=== PATIENT | female | born 1995 | race Caucasian/White ===

== ENCOUNTER → 2017-11-12 | Outpatient (CLI) | payer OTHER ==
--- NOTE | 2017-11-12 11:51 | US ---
EXAM DESCRIPTION: Pelvis Transvaginal: Ultrasound. CLINICAL HISTORY: EXCESSIVE FREQUENT MENSTRUATION WITH IRREGULAR CYCLE COMPARISON: None. TECHNIQUE: Transcutaneous scanning through the urine filled bladder. Endovaginal scanning. Two-dimensional and Doppler modes. FINDINGS: Uterus 7.2 x 4.2 x 3.9 cm. Endometrial thickness 8.4 mm. Small anechoic gestational sac with echogenic margins. 6.0 x 4.5 x 3.5 mm or mean sac size 4.6 mm. EGA 5 weeks, 0 days. No pole visualized or heart rate detected. The myometrium appears heterogeneous. The uterus is possibly retroverted. Cervix unremarkable. Cul-de-sac contains no fluid. Right ovary 2.4 x 1.7 x 0.9 cm. Normal color Vascularity Doppler. Multiple follicles but no cysts. No adnexal mass or free fluid. Left ovary 3.4 x 3.3 x 1.9 cm. Normal color Vascularity Doppler. Multiple follicles with no cysts. No adnexal mass or free fluid. IMPRESSION: 1. Small anechoic sac with echogenic margins in the endometrial cavity suggestive of early gestational sac. No pole seen and no heart rate detected. Mean gestational sac size consistent with EGA 5 weeks, 0 days. Uterus possibly retroverted. Recommend follow-up ultrasound in 7-10 days with serial beta hCG measurements. 2. Bilateral ovaries normal size with small follicles. No dominant cyst or adnexal mass. No free fluid. Electronically signed by: Tate Toro MD 11/12/2017 11:50 AM RESEARCH PHLEBOT[employer]IST
== END ==
LOC: US 09:29
PROVIDERS: ATTEND Physician Assistant
DX: N92.1 Excessive and frequent menstruation with irregular cycle (principal)

== ENCOUNTER → 2018-02-28 | Outpatient (CLI) | payer OTHER | LOC: GMATM 14:12 | PROVIDERS: ATTEND Nurse Practitioner Family | DX: N39.0 Urinary tract infection, site not specified (principal) ==

== ENCOUNTER 2019-10-04 10:13 | Emergency (ER) | payer OTHER ==
[2019-10-04] MEDS ORDERED: ONDANSETRON ODT 8 MG TAB SL ONE (10:49)
[2019-10-04] MEDS ORDERED: SODIUM CHLORIDE 0.9% 1000ML 1,000 ML IVS ONE ×2 (10:49→11:54)
--- NOTE | 2019-10-04 11:21 | RAD ---
EXAM DESCRIPTION: Abdomen Series CLINICAL HISTORY: nv abd pain COMPARISON: 06/27/2016.. TECHNIQUE: Upright PA chest with supine and upright views of the abdomen FINDINGS: The lungs are clear without focal consolidation, pleural effusion, or significant pneumothorax. The heart is normal in size. Minimal amount of stool within the cecum. The bowel gas pattern is normal without evidence of obstruction. No free subdiaphragmatic air. No abnormal calcifications. No acute osseous abnormality. IMPRESSION: 1. No acute cardiopulmonary process. 2. Nonobstructive bowel gas pattern. Electronically signed by: Néstor Morelos DO 10/04/2019 11:19 AM [facility]
--- NOTE | 2019-10-04 12:54 | ED.PDOC ---
History of Present Illness - General Chief Complaint: Abdominal Pain Stated Complaint: nausea/vomiting Time Seen by Provider: 10/04/19 10:48 Source: patient Exam Limitations: no limitations - History of Present Illness Initial Comments: The patient is a 23-year-old female presenting to emergency room secondary to nausea and vomiting that started in the early hours of morning.no diarrhea. No chest pain. She does have abdominal cramping but no real point abdominal pain. Apparently she had some heavier drinking yesterday. No fevers. No sore throat or runny nose. Timing/Duration: 4-6 hours Severity: severe Improving Factors: nothing Worsening Factors: nothing Associated Symptoms: loss of appetite, malaise, nausea/vomiting, weakness Allergies/Adverse Reactions: Allergies NO KNOWN ALLERGY Allergy (Verified 07/26/13 15:39) per physicians order sheet Home Medications: Ambulatory Orders Norgestimate-Ethinyl Estradiol [Norgestimate/Eth... 0.18/0.215/0.25 mg-25 Mcg] 1 tablet PO DAILY 10/04/19 Ondansetron Odt [Zofran ODT] 4 mg PO Q8HR PRN #5 tab 10/04/19 Review of Systems - Review of Systems Constitutional: States: malaise, weakness EENTM: States: no symptoms reported Respiratory: States: no symptoms reported Cardiology: States: no symptoms reported Gastrointestinal/Abdominal: States: abdominal pain, nausea, vomiting Genitourinary: States: no symptoms reported Musculoskeletal: States: no symptoms reported Skin: States: no symptoms reported Neurological: States: headache Endocrine: States: no symptoms reported All other Systems: No Change from Baseline Past Medical History (General) - Patient Medical History Hx Seizures: No Hx Stroke: No Hx Asthma: No Hx of COPD: No Hx Cardiac Disorders: No Hx Congestive Heart Failure: No Hx Pacemaker: No Hx Hypertension: No Hx Diabetes: No Hx Gastroesophageal Reflux: No Hx MRSA: No Surgical History: other - Social History Hx Alcohol Use: No Hx Substance Use: No Hx Physical Abuse: No Hx Emotional Abuse: No - Female History Hx Last Menstrual Period: 07/07/13 Family Medical History - Family History Grandparents Living Status: Unknown Hx Family Diabetes: Yes Physical Exam - Physical Exam General Appearance: Alert, Obvious distress Eye Exam: bilateral normal Ears, Nose, Throat: hearing grossly normal, normal ENT inspection Neck: full range of motion, supple Respiratory: lungs clear, normal breath sounds, no respiratory distress, no accessory muscle use Cardiovascular/Chest: normal peripheral pulses, regular rate, rhythm, no edema Peripheral Pulses: radial,right: 2+, radial,left: 2+ Gastrointestinal/Abdominal: soft, other - diffuse discomfort to palpation. No palpable mass. No obvious rebound. Rectal Exam: deferred Back Exam: no CVA tenderness, no vertebral tenderness Extremity: non-tender, normal inspection, no pedal edema, normal capillary refill Neurologic: video photographer II-XII nml as tested, alert, normal mood/affect, oriented x 3 Skin Exam: pallor Comments: Vital Signs - 24 hr 10/04/19 10/04/19 10/04/19 10:30 11:14 11:27 Temperature 96.9 F L Pulse Rate [ 106 H 88 96 H Pulse Ox] Respiratory 16 16 18 Rate Blood Pressure 110/79 110/79 [R Arm] O2 Sat by Pulse 99 95 Oximetry Progress - Progress Progress: 10/04/19 12:55 the patient is a 23-year-old female presenting to the emergency room with nausea and vomiting. This is likely contributed to by alcohol use last night but she may also have a gastroenteritis present. She needs to keep herself well hydrated and maintain a bland diet. She received a dose of Zofran here and will be continued on that as an outpatient as needed. She received 2 L of IV fluids here. Laboratory work is rather reassuring. X-rays also reassuring. She needs to avoid alcohol for the next couple of weeks. 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 Keep routine follow-up with primary care doctor. ER warnings are given. maria teresa mena [phone] - Results/Orders Results/Orders: acute abdominal series essentially appears benign. See report for details. Laboratory Tests 10/04/19 10/04/19 10/04/19 10:00 11:00 11:20 WBC RBC Hgb Hct MCV MCH MCHC RDW Plt Count MPV Absolute Neuts (auto) Absolute Lymphs (auto) Absolute Monos (auto) Absolute Eos (auto) Absolute Basos (auto) Neutrophils % Lymphocytes % Monocytes % Eosinophils % Basophils % Sodium 139 Potassium 4.4 Chloride 106 Carbon Dioxide 19 L Anion Gap 18.4 H BUN 15 Creatinine 0.65 BUN/Creatinine Ratio 23.1 H Random Glucose 77 Serum Osmolality 277.2 Lactic Acid Calcium 9.6 Total Bilirubin 1.1 H AST 26 ALT 15 Alkaline Phosphatase 58 Serum Total Protein 8.1 Albumin 4.5 Globulin 3.6 H Albumin/Globulin Ratio 1.3 Amylase 64 Urine Color Yellow Urine Appearance Clear Urine pH 5.5 Ur Specific [place] >= 1.030 Urine Protein Negative Urine Glucose (UA) Negative Urine Ketones >=160 Urine Blood Moderate H Urine Nitrite Negative Urine Bilirubin Negative Urine Urobilinogen 0.2 Ur Leukocyte Esterase Negative Urine RBC 5-10 H Urine WBC 5-10 H Ur Epithelial Cells Tntc Amorphous Sediment 3+ Urine Bacteria 1+ Urine Mucus Trace Urine HCG, Qual Negative 10/04/19 10/04/19 11:20 11:30 WBC 10.0 RBC 4.69 Hgb 14.9 Hct 43.6 MCV 93.0 MCH 31.7 H MCHC 34.1 RDW 11.8 Plt Count 304 MPV 8.1 Absolute Neuts (auto) 8.60 H Absolute Lymphs (auto) 0.90 L Absolute Monos (auto) 0.40 Absolute Eos (auto) 0.00 Absolute Basos (auto) 0.10 Neutrophils % 86.0 H Lymphocytes % 9.1 L Monocytes % 4.1 Eosinophils % 0.1 L Basophils % 0.7 Sodium Potassium Chloride Carbon Dioxide Anion Gap BUN Creatinine BUN/Creatinine Ratio Random Glucose Serum Osmolality Lactic Acid 1.5 Calcium Total Bilirubin AST ALT Alkaline Phosphatase Serum Total Protein Albumin Globulin Albumin/Globulin Ratio Amylase Urine Color Urine Appearance Urine pH Ur Specific [place] Urine Protein Urine Glucose (UA) Urine Ketones Urine Blood Urine Nitrite Urine Bilirubin Urine Urobilinogen Ur Leukocyte Esterase Urine RBC Urine WBC Ur Epithelial Cells Amorphous Sediment Urine Bacteria Urine Mucus Urine HCG, Qual Departure - Departure Clinical Impression: Gastroenteritis Disposition: Discharge to Home or Self Care Condition: Good Departure Forms: ED Discharge - Pt. Copy, Patient Portal Self Enrollment Diet: bland diet Activity: increase activity as tolerated Referrals: Sherif Mena MD [Primary Care Provider] - 1-2 Weeks Prescriptions: Ondansetron Odt [Zofran ODT] 4 mg PO Q8HR PRN #5 tab PRN Reason: Nausea--Moderate Home Medications: Ambulatory Orders Norgestimate-Ethinyl Estradiol [Norgestimate/Eth... 0.18/0.215/0.25 mg-25 Mcg] 1 tablet PO DAILY 10/04/19 Ondansetron Odt [Zofran ODT] 4 mg PO Q8HR PRN #5 tab 10/04/19 Additional Instructions: the patient is a 23-year-old female presenting to the emergency room with nausea and vomiting. This is likely contributed to by alcohol use last night but she may also have a gastroenteritis present. She needs to keep herself well hydrated and maintain a bland diet. She received a dose of Zofran here and will be continued on that as an outpatient as needed. She received 2 L of IV fluids here. Laboratory work is rather reassuring. X-rays also reassuring. She needs to avoid alcohol for the next couple of weeks. 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 Keep routine follow-up with primary care doctor. ER warnings are given.
[2019-10-04 13:28] VITALS: BP 123/76; O2SAT 97
[2019-10-04 14:09] VITALS: TEMP 97.6
== END 2019-10-04 13:10 | disposition home or self-care (01) ==
LOC: ER 10:13
DX: K52.9 Noninfective gastroenteritis and colitis, unspecified (principal)
CPT/HCPCS: 36415; 36416; 74019; 80053; 81001; 81025; 82150; 83605; 83690; 85025; 87502; J7030

== ENCOUNTER → 2019-11-23 | Outpatient (CLI) | payer OTHER | LOC: GMAM 17:23 | PROVIDERS: ATTEND Family Medicine | DX: R07.89 Other chest pain (principal); E53.8 Deficiency of other specified B group vitamins; E55.9 Vitamin D deficiency, unspecified ==

== ENCOUNTER 2020-02-07 23:25 | Emergency (ER) | payer OTHER ==
[2020-02-07] MEDS ORDERED: METOCLOPRAMIDE HCL INJ 10 MG/2 ML VIAL IV ONE (23:39)
[2020-02-07] MEDS ORDERED: ACETAMINOPHEN 500 MG TAB PO ONE (23:39)
[2020-02-07] MEDS ORDERED: SODIUM CHLORIDE 0.9% 1000ML 1,000 ML IVS ONE (23:39)
[2020-02-07] MEDS ORDERED: DEXAMETHASONE INJ 10 MG/ML VIAL IV ONE (23:40)
[2020-02-07] MEDS ORDERED: diphenhydrAMINE HCL 50 MG/ML VIAL IV ONE (23:45)
[2020-02-08] MEDS ORDERED: PROMETHAZINE HCL INJ 25 MG/ML VIAL IM ONE (00:03)
--- NOTE | 2020-02-08 00:07 | ED.PDOC ---
History of Present Illness - General Chief Complaint: Headache Stated Complaint: headache, migraines Time Seen by Provider: 02/07/20 23:32 - History of Present Illness Initial Comments: 24 yo F PMH Anxiety Depression (Denies hallucinations SI HI without suicide plan) Migraines Headaches presents to ED boyfriend at bedside c/o headache nausea vomiting without blood photophobia phonophobia x 3 hours. Denies recent travel cough or contact with covid19 denies fever chills diarrhea chest pain sob diaphoresis. Symptoms disturb rest and appetite no change in bowel or bladder no other c/o today PMD Irene Contreras Allergies/Adverse Reactions: Allergies NO KNOWN ALLERGY Allergy (Verified 02/07/20 23:36) per physicians order sheet Home Medications: Ambulatory Orders Ergocalciferol [Vitamin D] 1 capsule PO WKLY 02/07/20 Norgestimate-Ethinyl Estradiol [Femynor 0.25-35 mg-Mcg] 1 tablet PO DAILY 02/07/20 PARoxetine HCL [Paxil] 20 mg PO DAILY 02/07/20 Acetaminophen [Tylenol] 650 mg PO Q6H PRN #30 tab 02/08/20 DiphenhydrAMINE HCL [Benadryl] 50 mg PO BEDTIME #5 cap 02/08/20 Ibuprofen 600 mg PO Q6H PRN #20 tab 02/08/20 Review of Systems - Review of Systems Constitutional: States: see HPI EENTM: States: see HPI Respiratory: States: see HPI Cardiology: States: see HPI Gastrointestinal/Abdominal: States: see HPI Genitourinary: States: see HPI Musculoskeletal: States: see HPI Skin: States: see HPI Neurological: States: see HPI Endocrine: States: see HPI Hematologic/Lymphatic: States: see HPI All other Systems: Reviewed and Negative Past Medical History (General) - Patient Medical History Hx Seizures: No Hx Stroke: No Hx Dementia: No Hx Asthma: No Hx of COPD: No Hx Cardiac Disorders: No Hx Congestive Heart Failure: No Hx Pacemaker: No Hx Hypertension: No Hx Thyroid Disease: No Hx Diabetes: No Hx Gastroesophageal Reflux: No Hx Renal Disease: No Hx Cancer: No Hx of HIV: No Hx Hepatitis C: No Hx MRSA: No Surgical History: no surgical history - Social History Hx Alcohol Use: Yes Hx Substance Use: No Hx Physical Abuse: No Hx Emotional Abuse: No - Female History Hx Last Menstrual Period: 07/07/13 Family Medical History - Family History Grandparents Living Status: Unknown Hx Family Diabetes: Yes Physical Exam - Physical Exam General Appearance: Anxious, Obvious distress Eyes, Ears, Nose, Throat Exam: normal ENT inspection Neck: non-tender, full range of motion Cardiovascular/Chest: regular rate, rhythm, tachycardia Respiratory: no respiratory distress Gastrointestinal/Abdominal: non tender, soft Back Exam: normal inspection Extremity: normal range of motion, non-tender Mental Status: alert, oriented x 3 substitute bus driver Exam: normal speech Coordination/Gait: normal gait Motor/Sensory: no motor deficit, no sensory deficit Skin Exam: warm/dry Progress - Progress Progress: 02/08/20 00:05 PPE worn-N95 surgical mask with attached face shield over N95 gloves goggles and face shield over that A/P-Generalized Headache-iv bolus reglan benadryl phenergan tylenol decadron cbc cmp lipase utox asa acetaminophen alcohol level ua uhcg ct head reassess 02/08/20 00:20 sister and mother now at bedside as coincidentally sister presented to ED as a patient 02/08/20 00:45 On reassessment pt much more comfortable and sleeping soundly on monitor not hypoxic or tachycardic Laboratory Tests 02/07/20 02/07/20 02/07/20 23:45 23:45 23:45 WBC RBC Hgb Hct MCV MCH MCHC RDW Plt Count MPV Absolute Neuts (auto) Absolute Lymphs (auto) Absolute Monos (auto) Absolute Eos (auto) Absolute Basos (auto) Neutrophils % Lymphocytes % Monocytes % Eosinophils % Basophils % Sodium Potassium Chloride Carbon Dioxide Anion Gap BUN Creatinine BUN/Creatinine Ratio Random Glucose Serum Osmolality Calcium Total Bilirubin AST ALT Alkaline Phosphatase Serum Total Protein Albumin Globulin Albumin/Globulin Ratio Lipase Urine Color Yellow Urine Appearance Sl cloudy Urine pH 5.5 Ur Specific [place] 1.025 Urine Protein Negative Urine Glucose (UA) Negative Urine Ketones Negative Urine Blood Negative Urine Nitrite Negative Urine Bilirubin Negative Urine Urobilinogen 0.2 Ur Leukocyte Esterase Negative Urine RBC 0 Urine WBC 1-3 Ur Epithelial Cells 3-5 Urine Bacteria Rare Urine HCG, Qual Negative Salicylates Urine Opiates Screen Negative Acetaminophen Urine Barbiturates Negative Ur Phencyclidine Scrn Negative U Amphetamin/Meth Scrn Negative U Benzodiazepines Scrn Negative U Cocaine Metab Screen Negative U Cannabinoids Screen Positive H Ethyl Alcohol 02/08/20 02/08/20 02/08/20 00:01 00:01 00:01 WBC 12.0 H RBC 4.66 Hgb 15.0 Hct 43.6 MCV 93.4 MCH 32.1 H MCHC 34.4 RDW 11.9 Plt Count 246 MPV 8.4 Absolute Neuts (auto) 7.30 H Absolute Lymphs (auto) 3.50 H Absolute Monos (auto) 0.80 Absolute Eos (auto) 0.30 Absolute Basos (auto) 0.10 Neutrophils % 60.7 Lymphocytes % 29.4 Monocytes % 6.8 Eosinophils % 2.4 Basophils % 0.7 Sodium 133 L Potassium 3.0 L Chloride 99 L Carbon Dioxide 22 Anion Gap 15.0 BUN 15 Creatinine 0.72 BUN/Creatinine Ratio 20.8 H Random Glucose 109 H Serum Osmolality 267.8 L Calcium 9.2 Total Bilirubin 0.7 AST 19 ALT 13 Alkaline Phosphatase 54 Serum Total Protein 7.5 Albumin 4.6 Globulin 2.9 Albumin/Globulin Ratio 1.6 Lipase 37 Urine Color Urine Appearance Urine pH Ur Specific [place] Urine Protein Urine Glucose (UA) Urine Ketones Urine Blood Urine Nitrite Urine Bilirubin Urine Urobilinogen Ur Leukocyte Esterase Urine RBC Urine WBC Ur Epithelial Cells Urine Bacteria Urine HCG, Qual Salicylates Urine Opiates Screen Acetaminophen < 10.0 L Urine Barbiturates Ur Phencyclidine Scrn U Amphetamin/Meth Scrn U Benzodiazepines Scrn U Cocaine Metab Screen U Cannabinoids Screen Ethyl Alcohol < 5.40 02/08/20 00:48 EXAM DESCRIPTION: Head CLINICAL HISTORY: 24 years Female headache COMPARISON: None Technique: Contiguous axial images of the brain were obtained without the administration of intravenous contrast.This exam was performed according to our departmental dose-optimization program which includes use of Automated Exposure Control, adjustment of the mA and/or kV according to patient size and/or use of iterative reconstruction technique. DLP: 859 mGy*cm FINDINGS: Brain: No acute intracranial hemorrhage. No extra-axial collection. No mass effect or herniation. Ventricles: Within normal limits in size. Globes and orbits: No acute abnormality. Bones: No acute osseous finding Paranasal sinuses: Paranasal sinuses are clear. Mastoid air cells: Well pneumatized. Soft tissues: Within normal limits IMPRESSION: No acute intracranial abnormality. If clinical concern for acute ischemia, consider MRI brain without contrast for further evaluation. Electronically signed by: Alan Cohendebra CARTER 02/08/2020 12:42 AM CDT EXAM DESCRIPTION: Chest,1 View CLINICAL HISTORY:24 years Female, vomit Comparison: None FINDINGS: No focal lung consolidation. Mild left lung base atelectasis. No pleural effusion. No pneumothorax. Cardiomediastinal silhouette is within normal limits. No acute osseous abnormality. IMPRESSION: No acute cardiopulmonary disease. Electronically signed by: Alan Kardebra CARTER 02/08/2020 12:41 AM CDT Discharge home with Mother and sister tylenol ibuprofen benadryl Departure - Departure Clinical Impression: Marijuana abuse Headache Qualifiers: Headache type: unspecified Headache chronicity pattern: unspecified pattern Intractability: not intractable Qualified Code(s): R51 - Headache Disposition: Discharge to Home or Self Care Condition: Fair Departure Forms: ED Discharge - Pt. Copy, Patient Portal Self Enrollment Instructions: DI for Headache Referrals: Sherif Conrteras MD [Primary Care Provider] - 1-2 Days Prescriptions: Acetaminophen [Tylenol] 650 mg PO Q6H PRN #30 tab PRN Reason: Pain DiphenhydrAMINE HCL [Benadryl] 50 mg PO BEDTIME #5 cap Ibuprofen 600 mg PO Q6H PRN #20 tab PRN Reason: Pain Home Medications: Ambulatory Orders Ergocalciferol [Vitamin D] 1 capsule PO WKLY 02/07/20 Norgestimate-Ethinyl Estradiol [Femynor 0.25-35 mg-Mcg] 1 tablet PO DAILY 02/07/20 PARoxetine HCL [Paxil] 20 mg PO DAILY 02/07/20 Acetaminophen [Tylenol] 650 mg PO Q6H PRN #30 tab 02/08/20 DiphenhydrAMINE HCL [Benadryl] 50 mg PO BEDTIME #5 cap 02/08/20 Ibuprofen 600 mg PO Q6H PRN #20 tab 02/08/20
[2020-02-08] MEDS ORDERED: SODIUM CHLORIDE 0.9% 1000ML 1,000 ML IVS ONE (00:27)
--- NOTE | 2020-02-08 00:42 | RAD ---
EXAM DESCRIPTION: Chest,1 View CLINICAL HISTORY:24 years Female, vomit Comparison: None FINDINGS: No focal lung consolidation. Mild left lung base atelectasis. No pleural effusion. No pneumothorax. Cardiomediastinal silhouette is within normal limits. No acute osseous abnormality. IMPRESSION: No acute cardiopulmonary disease. Electronically signed by: Alan Durbin DO 02/08/2020 12:41 AM CDT
--- NOTE | 2020-02-08 00:43 | CT ---
EXAM DESCRIPTION: Head CLINICAL HISTORY: 24 years Female headache COMPARISON: None Technique: Contiguous axial images of the brain were obtained without the administration of intravenous contrast.This exam was performed according to our departmental dose-optimization program which includes use of Automated Exposure Control, adjustment of the mA and/or kV according to patient size and/or use of iterative reconstruction technique. DLP: 859 mGy*cm FINDINGS: Brain: No acute intracranial hemorrhage. No extra-axial collection. No mass effect or herniation. Ventricles: Within normal limits in size. Globes and orbits: No acute abnormality. Bones: No acute osseous finding Paranasal sinuses: Paranasal sinuses are clear. Mastoid air cells: Well pneumatized. Soft tissues: Within normal limits IMPRESSION: No acute intracranial abnormality. If clinical concern for acute ischemia, consider MRI brain without contrast for further evaluation. Electronically signed by: Alan Durbin DO 02/08/2020 12:42 AM CDT
[2020-02-08 01:03] VITALS: O2SAT 97
[2020-02-08 01:52] VITALS: BP 112/76; TEMP 97.8
== END 2020-02-08 01:53 | disposition home or self-care (01) ==
LOC: ER 23:25
DX: F12.10 Cannabis abuse, uncomplicated (principal); R51 Headache; R11.2 Nausea with vomiting, unspecified
CPT/HCPCS: 70450; 71045; 80053; 80307; 80320; 80329; 81001; 81025; 83690; 85025; J1100; J1200; J2550; J2765; J7030

== ENCOUNTER 2020-04-09 21:16 | Emergency (ER) | payer OTHER ==
[2020-04-09] MEDS ORDERED: SUCRALFATE 1 GM/10 ML 1 GM UD PO ONE (21:34)
[2020-04-09] MEDS ORDERED: SODIUM CHLORIDE 0.9% 1000ML 1,000 ML IVS ONE (21:34)
[2020-04-09] MEDS ORDERED: PANTOPRAZOLE SODIUM IV 40 MG VIAL IV ONE (21:34)
[2020-04-09] MEDS ORDERED: FOLIC ACID INJ 5 MG/ML VIAL IV ONE (21:34)
[2020-04-09] MEDS ORDERED: ONDANSETRON ODT 8 MG TAB SL ONE (21:35)
[2020-04-09 21:36] VITALS: O2SAT 98
[2020-04-09] MEDS ORDERED: THIAMINE HCL INJ 100 MG/ML VIAL ONE (21:47)
--- NOTE | 2020-04-09 22:22 | ED.PDOC ---
History of Present Illness - General Chief Complaint: GI Problem Stated Complaint: drank too much alcohol feels dehydrated Time Seen by Provider: 04/09/20 21:17 Source: patient Exam Limitations: no limitations - History of Present Illness Initial Comments: The patient is a 24-year-old female presented emergency room secondary to nausea and vomiting that is persistent persisting today. The patient reports she believes is due to drinking fairly heavily the night before. She has had this issue at least once before. She is feeling dehydrated and having some muscle cramps. No point tenderness on her abdomen though the epigastric area is a little more uncomfortable than elsewhere. No diarrhea. No fever. No right upper quadrant pain. No right lower quadrant pain particularly. Timing/Duration: other - 12 hours Severity: moderate Improving Factors: nothing Worsening Factors: eating Associated Symptoms: loss of appetite, malaise, nausea/vomiting Allergies/Adverse Reactions: Allergies NO KNOWN ALLERGY Allergy (Verified 02/07/20 23:36) per physicians order sheet Home Medications: Ambulatory Orders Ergocalciferol [Vitamin D] 1 capsule PO WKLY 02/07/20 Norgestimate-Ethinyl Estradiol [Femynor 0.25-35 mg-Mcg] 1 tablet PO DAILY 02/07/20 PARoxetine HCL [Paxil] 20 mg PO DAILY 02/07/20 Acetaminophen [Tylenol] 650 mg PO Q6H PRN #30 tab 02/08/20 DiphenhydrAMINE HCL [Benadryl] 50 mg PO BEDTIME #5 cap 02/08/20 Ibuprofen 600 mg PO Q6H PRN #20 tab 02/08/20 Ondansetron Odt [Zofran ODT] 4 mg PO Q8HR PRN #5 tab 04/09/20 Sucralfate Tab [Carafate Tab] 1 gm PO QID #30 tab 04/09/20 Review of Systems - Review of Systems Constitutional: States: malaise EENTM: States: no symptoms reported Respiratory: States: no symptoms reported Cardiology: States: no symptoms reported Gastrointestinal/Abdominal: States: nausea, vomiting Genitourinary: States: no symptoms reported Musculoskeletal: States: back pain Skin: States: no symptoms reported Neurological: States: no symptoms reported Endocrine: States: no symptoms reported All other Systems: No Change from Baseline Past Medical History (General) - Patient Medical History Hx Seizures: No Hx Stroke: No Hx Dementia: No Hx Asthma: No Hx of COPD: No Hx Cardiac Disorders: No Hx Congestive Heart Failure: No Hx Pacemaker: No Hx Hypertension: No Hx Thyroid Disease: No Hx Diabetes: No Hx Gastroesophageal Reflux: No Hx Renal Disease: No Hx Cancer: No Hx of HIV: No Hx Hepatitis C: No Hx MRSA: No Surgical History: other - Vaccination History Hx Tetanus, Diphtheria Vaccination: Yes Hx Influenza Vaccination: No - Social History Hx Tobacco Use: Yes Hx Alcohol Use: Yes Hx Substance Use: No Hx Physical Abuse: No Hx Emotional Abuse: No - Female History Hx Last Menstrual Period: 07/07/13 Family Medical History - Family History Grandparents Living Status: Unknown Hx Family Diabetes: Yes Physical Exam - Physical Exam General Appearance: Alert, Comfortable, No apparent distress Eye Exam: bilateral normal Ears, Nose, Throat: hearing grossly normal, normal pharynx Neck: full range of motion, supple Respiratory: lungs clear, normal breath sounds, no respiratory distress, no accessory muscle use Cardiovascular/Chest: normal peripheral pulses, regular rate, rhythm - Borderline tachycardia, no edema Peripheral Pulses: radial,right: 2+, radial,left: 2+ Gastrointestinal/Abdominal: non tender, soft Rectal Exam: deferred Back Exam: no CVA tenderness, no vertebral tenderness Extremity: normal range of motion, non-tender, normal inspection, no pedal edema, no calf tenderness, normal capillary refill 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 She does have mild dehydration and has received a liter of IV fluids along with thiamine and folate. The patient will be written for Carafate to take for the next week along with some Zofran for as needed use. She needs to try and avoid alcohol for at least the next week or 2. Keep well-hydrated. Maintain a bland diet. ER warnings are given for any worsening. maria teresa mena [phone] - Results/Orders Results/Orders: Laboratory Results - last hr 04/09/20 04/09/20 04/09/20 21:40 21:43 21:43 WBC 12.4 H RBC 4.60 Hgb 15.1 Hct 43.7 MCV 95.0 MCH 32.9 H MCHC 34.6 RDW 12.2 Plt Count 279 MPV 8.0 Absolute Neuts (auto) 10.60 H Absolute Lymphs (auto) 1.20 Absolute Monos (auto) 0.50 Absolute Eos (auto) 0.00 Absolute Basos (auto) 0.10 Neutrophils % 85.1 H Lymphocytes % 10.0 L Monocytes % 4.4 Eosinophils % 0.0 L Basophils % 0.5 Sodium 137 Potassium 4.4 Chloride 103 Carbon Dioxide 18 L Anion Gap 20.4 H BUN 16 Creatinine 0.75 BUN/Creatinine Ratio 21.3 H Random Glucose 96 Serum Osmolality 274.9 L Calcium 9.6 Magnesium 1.8 Total Bilirubin 1.2 H AST 26 ALT 18 Alkaline Phosphatase 77 Serum Total Protein 8.4 H Albumin 4.7 Globulin 3.7 H Albumin/Globulin Ratio 1.3 Amylase 143 H Lipase 28 Serum HCG, Qual Urine Color Yellow Urine Appearance Clear Urine pH 5.5 Ur Specific [place] >= 1.030 Urine Protein Negative Urine Glucose (UA) Negative Urine Ketones >=160 Urine Blood Trace-lysed H Urine Nitrite Negative Urine Bilirubin Negative Urine Urobilinogen 0.2 Ur Leukocyte Esterase Negative Urine RBC 0-1 Urine WBC 0-1 Ur Epithelial Cells 3-5 Urine Bacteria Rare Urine Mucus Moderate 04/09/20 21:43 WBC RBC Hgb Hct MCV MCH MCHC RDW Plt Count MPV Absolute Neuts (auto) Absolute Lymphs (auto) Absolute Monos (auto) Absolute Eos (auto) Absolute Basos (auto) Neutrophils % Lymphocytes % Monocytes % Eosinophils % Basophils % Sodium Potassium Chloride Carbon Dioxide Anion Gap BUN Creatinine BUN/Creatinine Ratio Random Glucose Serum Osmolality Calcium Magnesium Total Bilirubin AST ALT Alkaline Phosphatase Serum Total Protein Albumin Globulin Albumin/Globulin Ratio Amylase Lipase Serum HCG, Qual Negative Urine Color Urine Appearance Urine pH Ur Specific [place] Urine Protein Urine Glucose (UA) Urine Ketones Urine Blood Urine Nitrite Urine Bilirubin Urine Urobilinogen Ur Leukocyte Esterase Urine RBC Urine WBC Ur Epithelial Cells Urine Bacteria Urine Mucus Departure - Departure Clinical Impression: Acute gastritis Qualifiers: Gastritis type: alcoholic Gastritis bleeding: without bleeding Qualified Code(s): K29.20 - Alcoholic gastritis without bleeding Disposition: Discharge to Home or Self Care Condition: Fair Departure Forms: ED Discharge - Pt. Copy, Patient Portal Self Enrollment Instructions: DI for Gastritis Diet: bland diet Activity: increase activity as tolerated Referrals: Sherif Mena MD [Primary Care Provider] - 1-2 Weeks Prescriptions: Ondansetron Odt [Zofran ODT] 4 mg PO Q8HR PRN #5 tab PRN Reason: Nausea--Moderate Sucralfate Tab [Carafate Tab] 1 gm PO QID #30 tab Home Medications: Ambulatory Orders Ergocalciferol [Vitamin D] 1 capsule PO WKLY 02/07/20 Norgestimate-Ethinyl Estradiol [Femynor 0.25-35 mg-Mcg] 1 tablet PO DAILY 02/07/20 PARoxetine HCL [Paxil] 20 mg PO DAILY 02/07/20 Acetaminophen [Tylenol] 650 mg PO Q6H PRN #30 tab 02/08/20 DiphenhydrAMINE HCL [Benadryl] 50 mg PO BEDTIME #5 cap 02/08/20 Ibuprofen 600 mg PO Q6H PRN #20 tab 02/08/20 Ondansetron Odt [Zofran ODT] 4 mg PO Q8HR PRN #5 tab 04/09/20 Sucralfate Tab [Carafate Tab] 1 gm PO QID #30 tab 04/09/20 Additional Instructions: The patient is a 24-year-old female presenting with gastritis that is likely due to alcohol intake last night. She does have mild dehydration and has received a liter of IV fluids along with thiamine and folate. The patient will be written for Carafate to take for the next week along with some Zofran for as needed use. She needs to try and avoid alcohol for at least the next week or 2. Keep well-hydrated. Maintain a bland diet. Follow-up with primary care doctor later this coming week. ER warnings are given for any worsening.
[2020-04-09 22:40] VITALS: BP 124/78; TEMP 98.1
[2020-04-10] MEDS ORDERED: THIAMINE HCL INJ 100 MG/ML VIAL IV ONE (21:35)
== END 2020-04-09 22:39 | disposition home or self-care (01) ==
LOC: ER 21:16
DX: K29.20 Alcoholic gastritis without bleeding (principal); E86.0 Dehydration; F17.200 Nicotine dependence, unspecified, uncomplicated
CPT/HCPCS: 80053; 81001; 82150; 83690; 83735; 84443; 84703; 85025; J3411; J7030

== ENCOUNTER 2020-07-24 01:13 | Emergency (ER) | payer OTHER ==
--- NOTE | 2020-07-24 01:35 | ED.PDOC ---
History of Present Illness - General Chief Complaint: Respiratory Problem Time Seen by Provider: 07/24/20 01:14 Source: patient, RN notes reviewed, Vital Signs reviewed Exam Limitations: no limitations - History of Present Illness Initial Comments: 24 yo otherwise healthy F was at a friends house when she did some cocaine. Turns out it wasn't cocaine it was meth. She developed chest pain, shortness of breath and heart racing. She tried to drink a beer to see if that would help, but it didn't so came in for evaluation. no evidence of acute intoxication. calm, collective. last used yesterday evening. Timing/Duration: 4-6 hours Allergies/Adverse Reactions: Allergies NO KNOWN ALLERGY Allergy (Verified 02/07/20 23:36) per physicians order sheet Home Medications: Ambulatory Orders Ergocalciferol [Vitamin D] 1 capsule PO WKLY 02/07/20 Norgestimate-Ethinyl Estradiol [Femynor 0.25-35 mg-Mcg] 1 tablet PO DAILY PARoxetine HCL [Paxil] 20 mg PO DAILY 02/07/20 Acetaminophen [Tylenol] 650 mg PO Q6H PRN #30 tab 02/08/20 DiphenhydrAMINE HCL [Benadryl] 50 mg PO BEDTIME #5 cap 02/08/20 Ibuprofen 600 mg PO Q6H PRN #20 tab 02/08/20 Ondansetron Odt [Zofran ODT] 4 mg PO Q8HR PRN #5 tab 04/09/20 Sucralfate Tab [Carafate Tab] 1 gm PO QID #30 tab 04/09/20 Review of Systems - Review of Systems Constitutional: Denies: chills, fever EENTM: Denies: blurred vision, double vision Respiratory: States: short of breath. Denies: cough, wheezing Cardiology: States: chest pain, palpitations. Denies: edema, syncope Gastrointestinal/Abdominal: Denies: abdominal pain, diarrhea, nausea, vomiting Genitourinary: Denies: dysuria, frequency, hematuria Musculoskeletal: Denies: back pain, joint swelling, muscle pain Skin: Denies: rash Neurological: Denies: headache, numbness, paresthesia, tingling, tremors, weakness Endocrine: Denies: unexplained weight gain, unexplained weight loss Hematologic/Lymphatic: Denies: blood clots, easy bleeding, easy bruising Past Medical History (General) - Patient Medical History Hx Seizures: No Hx Stroke: No Hx Dementia: No Hx Asthma: No Hx of COPD: No Hx Cardiac Disorders: No Hx Congestive Heart Failure: No Hx Pacemaker: No Hx Hypertension: No Hx Thyroid Disease: No Hx Diabetes: No Hx Gastroesophageal Reflux: No Hx Renal Disease: No Hx Cancer: No Hx of HIV: No Hx Hepatitis C: No Hx MRSA: No - Vaccination History Hx Tetanus, Diphtheria Vaccination: Yes Hx Influenza Vaccination: No - Social History Hx Tobacco Use: Yes Hx Alcohol Use: Yes Hx Substance Use: No Hx Physical Abuse: No Hx Emotional Abuse: No - Female History Patient is a Female of Child Bearing Age (10 -59 yrs old): Yes Hx Last Menstrual Period: 07/23/20 Patient : No Family Medical History - Family History Grandparents Living Status: Unknown Hx Family Diabetes: Yes Physical Exam - Physical Exam General Appearance: Alert, Comfortable, No apparent distress, Well Developed, Well Groomed, Well Hydrated, Well Nourished Eyes, Ears, Nose, Throat Exam: PERRL/EOMI, normal ENT inspection, TMs normal Neck: non-tender, full range of motion, supple, normal inspection Respiratory: chest non-tender, lungs clear, normal breath sounds, no respiratory distress, no accessory muscle use Cardiovascular/Chest: normal peripheral pulses, no edema, no gallop, no JVD, no murmur, tachycardia - HR 101 Peripheral Pulses: radial,right: 2+, radial,left: 2+ Gastrointestinal/Abdominal: normal bowel sounds, non tender, soft, no organomegaly Rectal Exam: deferred Extremity: normal range of motion, non-tender, normal inspection, no pedal edema, no calf tenderness, normal capillary refill 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 - Results/Orders Results/Orders: covid negative. 07/24/20 01:30 EKG STAT 07/24/20 01:45 Sodium Chloride 0.9% 1000ML [Ns 1000 ml] 1,000 ml IVS ONCE Laboratory Results WBC 7.3 K/mm3 (4.8-10.8) 07/24/20 01:41 RBC 4.61 M/mm3 (4.20-5.40) 07/24/20 01:41 Hgb 14.9 gm/dL (12.0-16.0) 07/24/20 01:41 Hct 42.6 % (36.0-47.0) 07/24/20 01:41 MCV 92.5 fl (81.0-99.0) 07/24/20 01:41 MCH 32.3 pg (27.0-31.0) H 07/24/20 01:41 MCHC 35.0 g/dL (33.0-37.0) 07/24/20 01:41 RDW 12.0 % (11.5-14.5) 07/24/20 01:41 Plt Count 307 K/mm3 (130-400) 07/24/20 01:41 MPV 7.7 fl (7.40-10.4) 07/24/20 01:41 Absolute Neuts (auto) 3.00 K/uL (1.8-6.8) 07/24/20 01:41 Absolute Lymphs (auto) 2.80 K/uL (1.0-3.4) 07/24/20 01:41 Absolute Monos (auto) 0.70 K/uL (0.2-0.8) 07/24/20 01:41 Absolute Eos (auto) 0.80 K/uL (0.0-0.4) H 07/24/20 01:41 Absolute Basos (auto) 0.10 K/uL (0.0-0.1) 07/24/20 01:41 Neutrophils % 41.4 % (42.0-78.0) L 07/24/20 01:41 Lymphocytes % 38.0 % (20.0-50.0) 07/24/20 01:41 Monocytes % 8.9 % (2.0-9.0) 07/24/20 01:41 Eosinophils % 10.5 % (1.0-5.0) H 07/24/20 01:41 Basophils % 1.2 % (0.0-2.0) 07/24/20 01:41 Sodium 138 mmol/L (135-145) 07/24/20 01:41 Potassium 3.7 mmol/L (3.6-5.0) 07/24/20 01:41 Chloride 104 mmol/L (101-111) 07/24/20 01:41 Carbon Dioxide 24 mmol/L (21-31) 07/24/20 01:41 Anion Gap 13.7 (12-18) 07/24/20 01:41 BUN 12 mg/dL (7-18) 07/24/20 01:41 Creatinine 0.53 mg/dL (0.6-1.3) L 07/24/20 01:41 BUN/Creatinine Ratio 22.6 (10-20) H 07/24/20 01:41 Random Glucose 128 mg/dL (70-105) H 07/24/20 01:41 Serum Osmolality 277.1 mOsm/L (275-295) 07/24/20 01:41 Calcium 8.7 mg/dL (8.4-10.2) 07/24/20 01:41 Total Bilirubin 0.9 mg/dL (0.2-1.0) 07/24/20 01:41 AST 20 IU/L (10-42) 07/24/20 01:41 ALT 14 IU/L (10-60) 07/24/20 01:41 Alkaline Phosphatase 49 IU/L (42-121) 07/24/20 01:41 Troponin I < 0.02 ng/mL (0.01-0.05) 07/24/20 01:41 B-Natriuretic Peptide < 15.0 pg/ml (0-100) 07/24/20 01:41 Serum Total Protein 7.0 gm/dL (6.4-8.2) 07/24/20 01:41 Albumin 4.1 g/dl (3.2-5.5) 07/24/20 01:41 Globulin 2.9 gm/dL (2.3-3.5) 07/24/20 01:41 Albumin/Globulin Ratio 1.4 (1.1-1.9) 07/24/20 01:41 The data reviewed when caring for this patient included: nurse notes, prior records, etc. The history and assessments from nurses notes were reviewed and considered, and the patient's home medication list was also reviewed and considered. My assessment and the results of testing completed here in the ED were discussed with the patient. All questions were answered, and she express understanding of my assessment and the plan. she have been instructed to return if their symptoms worsen, and have been asked to follow up with their primary care physician to recheck today's presenting complaint. Strict return pr ecautions given. patient discharged home with family in stable condition. Sandra Echavarria DO #801 - EKG/XRAY/CT EKG: Sinus, Tachy Comments: incomplete RBBB, no acute ischemia noted. XRAY: chest - no acute cardiopulmonary pathology Departure - Departure Clinical Impression: Tachycardia Sympathomimetic adverse reaction Qualifiers: Encounter type: initial encounter Qualified Code(s): T44.905A - Adverse effect of unspecified drugs primarily affecting the autonomic nervous system, initial encounter Time of Disposition: 02:15 Disposition: Discharge to Home or Self Care Departure Forms: ED Discharge - Pt. Copy, Patient Portal Self Enrollment Instructions: Chest Pain, Drug Abuse and Drug Addiction (DC), Methamphetamine Diet: resume usual diet Referrals: Sherif Contreras MD [Primary Care Provider] - 1-5 Days Home Medications: Ambulatory Orders Ergocalciferol [Vitamin D] 1 capsule PO WKLY 02/07/20 Norgestimate-Ethinyl Estradiol [Femynor 0.25-35 mg-Mcg] 1 tablet PO DAILY PARoxetine HCL [Paxil] 20 mg PO DAILY 02/07/20 Acetaminophen [Tylenol] 650 mg PO Q6H PRN #30 tab 02/08/20 DiphenhydrAMINE HCL [Benadryl] 50 mg PO BEDTIME #5 cap 02/08/20 Ibuprofen 600 mg PO Q6H PRN #20 tab 02/08/20 Ondansetron Odt [Zofran ODT] 4 mg PO Q8HR PRN #5 tab 04/09/20 Sucralfate Tab [Carafate Tab] 1 gm PO QID #30 tab 04/09/20
[2020-07-24] MEDS ORDERED: SODIUM CHLORIDE 0.9% 1000ML 1,000 ML IVS ONE (01:45)
--- NOTE | 2020-07-24 01:58 | RAD ---
EXAM: Chest,1 View HISTORY: sob COMPARISON: Chest 1 View AP 02/08/2020 TECHNIQUE: Chest 1 View AP FINDINGS: Trachea midline. Heart size and pulmonary vessels within normal limits. Mild symmetric bilateral mid lungs/chest density most likely represents overlying breast/chest wall attenuation artifact. Lungs clear with no evidence of mass, consolidation, or significant pulmonary edema. No significant pleural effusion or pneumothorax. Bones unremarkable. IMPRESSION: Normal chest radiograph. Electronically signed by: Ziyad Baig MD 07/24/2020 1:56 AM CDT
[2020-07-24 02:44] VITALS: BP 109/72; TEMP 97.8; O2SAT 96
== END 2020-07-24 02:43 | disposition home or self-care (01) ==
LOC: ER 01:13
DX: T43.621A Poisoning by amphetamines, accidental (unintentional), initial encounter (principal); R00.0 Tachycardia, unspecified; F15.10 Other stimulant abuse, uncomplicated; R07.9 Chest pain, unspecified; I45.10 Unspecified right bundle-branch block; R06.02 Shortness of breath; R00.2 Palpitations; Z87.891 Personal history of nicotine dependence; Y92.009 Unspecified place in unspecified non-institutional (private) residence as the place of occurrence of the external cause; Z20.828 Contact with and (suspected) exposure to other viral communicable diseases
CPT/HCPCS: 71045; 80053; 83880; 84484; 85025; 87635; 93005; J2060; J7030